=== PATIENT | female | born 1995 | race African-American/Black ===

== ENCOUNTER 2017-05-13 10:44 | Emergency (ER) | payer OTHER ==
[~2017-05-13] VITALS: Ht 154.9 cm; Wt 67.2 kg
[2017-05-13 10:58] VITALS: BP 132/77
[2017-05-13] MEDS ORDERED: IBUPROFEN 600 MG TAB PO ONE (11:45)
[2017-05-13 12:13] VITALS: BP 132/77
== END 2017-05-13 12:13 | disposition home or self-care (01) ==
LOC: MED 10:44
DX: S09.90XA Unspecified injury of head, initial encounter (principal); W19.XXXA Unspecified fall, initial encounter; Y93.89 Activity, other specified; Y92.512 Supermarket, store or market as the place of occurrence of the external cause; Y99.8 Other external cause status
CPT/HCPCS: 99283

== ENCOUNTER 2017-11-11 14:03 | Emergency (ER) | payer OTHER ==
[~2017-11-11] VITALS: Ht 152.4 cm; Wt 63.5 kg
[2017-11-11 14:07] VITALS: BP 124/79
--- NOTE | 2017-11-11 14:11 | NUR ---
AMBULATES TO BED 6 W/ STEADY GAIT
--- NOTE | 2017-11-11 14:24 | NUR ---
PATIENT PRESENTS TO ED WITH REDNESS FLAKING SKIN IRRITATION SURROUNDING MOUTH NOSE CHIN AREA . PT STATES . DENIES N/V/D; SKIN IS PINK/WARM/DRY; AAOX4 WITH EVEN AND STEADY GAIT; LUNGS CLEAR BL; HR EVEN AND REGULAR; PT DENIES ANY FEVER, CP, SOB, OR COUGH AT THIS TIME; PATIENT STATES PAIN OF 5/10 AT THIS TIME; VSS; PATIENT POSITIONED FOR COMFORT; HOB ELEVATED; BEDRAILS UP X2; BED DOWN. ER MD MADE AWARE OF PT STATUS.
--- NOTE | 2017-11-11 16:51 | NUR ---
Patient discharged with v/s stable. Written and verbal after care instructions given and explained. Patient alert, oriented and verbalized understanding of instructions. Ambulatory with steady gait. All questions addressed prior to discharge. ID band removed. Patient advised to follow up with PMD. Rx of MUPRIROCIN 2%/ BACTRIM/ DIFLUCAN given. Patient educated on indication of medication including possible reaction and side effects. Opportunity to ask questions provided and answered.
[2017-11-11 16:53] VITALS: BP 124/68
== END 2017-11-11 16:51 | disposition home or self-care (01) ==
LOC: MED 14:03
DX: B36.0 Pityriasis versicolor (principal); L01.00 Impetigo, unspecified
CPT/HCPCS: 99283

== ENCOUNTER 2021-07-08 18:34 | Emergency (ER) | payer OTHER ==
[~2021-07-08] VITALS: Ht 152.4 cm; Wt 77.1 kg
[2021-07-08 18:57] VITALS: BP 147/90
--- NOTE | 2021-07-08 20:45 | NUR ---
PT CALLED IN LOBBY AND OUTSIDE WITH NO ANSWER.
--- NOTE | 2021-07-08 20:51 | NUR ---
PT CALLED IN LOBBY AND OUTSIDE WITH NO ANSWER. VERIFIED WITH ADMIT CEMENT [facility] [employer] AND PT LEFT FACILITY.
== END 2021-07-08 20:51 | disposition left against medical advice (07) ==
LOC: MED 18:34
DX: N64.4 Mastodynia (principal); Z53.21 Procedure and treatment not carried out due to patient leaving prior to being seen by health care provider